=== PATIENT | male | born 2000 | race Hispanic/Latino ===

== ENCOUNTER 2023-07-15 14:02 | Emergency (ER) | payer OTHER ==
[~2023-07-15] VITALS: Ht 170.2 cm; Wt 75.5 kg
[2023-07-15 15:52] VITALS: BP 130/72; TEMP 97.5; O2SAT 99
== END 2023-07-15 15:54 | disposition home or self-care (01) ==
LOC: M ED 14:02
DX: S79.912A Unspecified injury of left hip, initial encounter (principal); S29.002A Unspecified injury of muscle and tendon of back wall of thorax, initial encounter; S40.912A Unspecified superficial injury of left shoulder, initial encounter; V49.40XA Driver injured in collision with unspecified motor vehicles in traffic accident, initial encounter; Y92.410 Unspecified street and highway as the place of occurrence of the external cause; Y93.89 Activity, other specified; Y99.9 Unspecified external cause status

== ENCOUNTER → 2023-09-25 | Outpatient (CLI) | payer OTHER | LOC: M PLAIMG 06:39 | PROVIDERS: ATTEND Physician Assistant | DX: M25.532 Pain in left wrist (principal) ==

== ENCOUNTER → 2023-11-09 | Outpatient (CLI) | payer OTHER | LOC: M SOG 14:48 | PROVIDERS: ATTEND Orthopaedic Surgery Hand Surgery | DX: M25.532 Pain in left wrist (principal) ==

== ENCOUNTER 2023-12-14 22:49 | Emergency (ER) | payer OTHER ==
[~2023-12-14] VITALS: Ht 170.2 cm; Wt 77.3 kg
[2023-12-15] MEDS: METOCLOPRAMIDE INJ 10MG/2ML VIAL IV ONE (08:39)
[2023-12-15] MEDS: KETOROLAC 30 MG/ML 1ML VIAL IV ONE (08:40)
[2023-12-15 10:13] VITALS: BP 118/80; TEMP 97.9; O2SAT 98
== END 2023-12-15 10:25 | disposition home or self-care (01) ==
LOC: M ED 22:49
DX: G43.909 Migraine, unspecified, not intractable, without status migrainosus (principal)
CPT/HCPCS: 96374; 96375; 99284; J1885; J2765

== ENCOUNTER → 2024-03-14 | Outpatient (REF) | LOC: M PLAIMG 09:00 | PROVIDERS: ATTEND Internal Medicine | DX: R52 Pain, unspecified (principal) ==

== ENCOUNTER → 2024-06-10 | Outpatient (CLI) | payer OTHER ==
[~2024-06-10] MED LIST: ISOVUE-300 61% 100ML VIAL As Ordered ONE; LIDOCAINE 1% MDV 20ML VIAL As Ordered ONE; PROHANCE 279.3MG/ML 5ML VIAL As Ordered ONE
== END ==
LOC: M RAD 07:18
PROVIDERS: ATTEND Orthopaedic Surgery Hand Surgery
DX: S52.502S Unspecified fracture of the lower end of left radius, sequela (principal); M25.632 Stiffness of left wrist, not elsewhere classified
CPT/HCPCS: 25246; 73223; 77002; A9576; Q9967